=== PATIENT | female | born 1985 | race Caucasian/White ===

== ENCOUNTER → 2019-04-17 | Outpatient (CLI) | payer OTHER ==
[2019-04-18 06:07] LABS: RUBEOLA (MEASLES) IGG >300.0 AU/mL (Immune >16.4)
== END | disposition home or self-care (01) ==
LOC: LABPV 11:14
PROVIDERS: ATTEND Internal Medicine
DX: Z02.1 Encounter for pre-employment examination (principal)
CPT/HCPCS: 86706; 86735; 86762; 86765; 86787

== ENCOUNTER 2019-08-30 15:00 | Emergency (ER) | payer OTHER ==
[~2019-08-30] VITALS: Ht 167.6 cm; Wt 72.7 kg
[2019-08-30 15:01] VITALS: BP 143/47
== END 2019-08-30 17:06 | disposition left against medical advice (07) ==
LOC: EMS 15:02
DX: M79.645 Pain in left finger(s) (principal); M79.642 Pain in left hand; W01.0XXA Fall on same level from slipping, tripping and stumbling without subsequent striking against object, initial encounter; Y93.89 Activity, other specified; Y92.69 Other specified industrial and construction area as the place of occurrence of the external cause; Y99.0 Civilian activity done for income or pay